=== PATIENT | female | born 1970 | race Caucasian/White ===

== ENCOUNTER → 2019-11-06 08:12 | Outpatient (BNVA) | payer OTHER, SELFPAY | PROVIDERS: Family Provider Nurse Practitioner Family; PCP Registered Nurse; Referring Provider Registered Nurse; Visit Provider Psychiatry & Neurology Neurology | DX: R20.0 Anesthesia of skin (principal); R20.2 Paresthesia of skin; R29.90 Unspecified symptoms and signs involving the nervous system; F17.210 Nicotine dependence, cigarettes, uncomplicated | CPT/HCPCS: 95885; 95910 ==

== ENCOUNTER → 2019-11-16 09:11 | Outpatient (BNVA) | payer OTHER, SELFPAY | PROVIDERS: Family Provider Nurse Practitioner Family; PCP Registered Nurse; Visit Provider Registered Nurse | DX: G47.09 Other insomnia (principal); N30.00 Acute cystitis without hematuria; F51.02 Adjustment insomnia | CPT/HCPCS: 81003 ==

== ENCOUNTER → 2019-12-23 10:26 | Outpatient (BNVA) | payer OTHER, SELFPAY | PROVIDERS: Family Provider Nurse Practitioner Family; PCP Registered Nurse; Visit Provider Registered Nurse | DX: R68.89 Other general symptoms and signs (principal); J06.9 Acute upper respiratory infection, unspecified | CPT/HCPCS: 87400 ==

== ENCOUNTER → 2020-01-15 13:11 | Outpatient (BNVA) | payer OTHER, SELFPAY | PROVIDERS: Family Provider Nurse Practitioner Family; PCP Registered Nurse; Visit Provider Registered Nurse | DX: R30.0 Dysuria (principal); J06.9 Acute upper respiratory infection, unspecified | CPT/HCPCS: 81000 ==

== ENCOUNTER 2020-03-02 06:47 | Day surgery (SDC) | payer OTHER, SELFPAY ==
[2020-03-01 13:24] VITALS: BMI 26.6
[2020-03-02] VITALS (8 sets, daily range): BP systolic 114–144; BP diastolic 40–63; PULSE 56–72; RESP 10–20; TEMP 36.1–36.4; O2SAT 97–100
--- NOTE | 2020-03-02 07:22 | ANES.PREANE2 ---
Pre-Anesthetic Assessment Pre-Anesthetic Assessment: Height/Weight: Height 1.65 m Weight 72.575 kg Temp Pulse Resp BP Pulse Ox 97.5 F L 59 L 18 114/40 99 03/02/20 07:03 03/02/20 07:03 03/02/20 07:03 03/02/20 07:03 03/02/20 07:03 Preop Diagnosis: Bilateral carpal tunnel Proposed Procedure: Operation Date: 03/02/20 08:10 Proposed Procedures p Carpal Tunnel Release 80115 G56.03(Bilateral) - Ger Holliday MD Last intake: Intake Last Liquid Date 03/01/20 Last Liquid Time 23:59 Last Solid Date 03/01/20 Last Solid Time 22:00 Social: Social History: Tobacco (quit 2 week ago) and No alcohol Exam: Pre-Anes Outpt Exam: alert, oriented x 3, clear to auscultation bilaterally and regular rate & rhythm Airway: Submandibular: WNL Cervical ROM: WNL MP: 2 Dentition: False (upper and lower) History/ROS: No significant history except as noted Pulmonary: Pulmonary: None reported CV/HEM: CV/HEM: Arrythmia (freq PVC) : : None reported Hepatic: Hepatic: None reported GI: GI: GERD (not well controlled) and PUD Metabolic: Metabolic: None reported Musc/skel: Musc/skel: None reported Neuropsych: Neuropsych: Neuropathy (bilat hands) Anesthetic Plan: ASA status: 3 Anesthesia: Anesthesia Evaluation and General Risk of > 500 ml blood loss (7ml/kg in children): No PFSH Anesthesia PFSH: Medical History Arrhythmia Stomach ulcer Surgical History (Updated 03/02/20 @ 07:23 by Reji Fraser MD) History of partial hysterectomy Hx of cholecystectomy Social History Smoking and tobacco status: current every day smoker Data Anesthesia Cardiac Studies: No Data to Display
--- NOTE | 2020-03-02 07:24 | PC.NURSE ---
Verbal order given by Dr. Fraser
[2020-03-02] MEDS: sodium chloride 0.9% 1,000 ML 30 ML IV (07:25)
--- NOTE | 2020-03-02 08:07 | W.PM.OPSUD ---
Surgery/Procedure H&P Update DATE OF PROCEDURE: March 02, 2020 DATE H&P PERFORMED: 02/18/20 H&P UPDATE INFORMATION: I have reviewed H&P completed within last 30 days PREOP DIAGNOSIS: Bilateral carpal tunnel PLANNED PROCEDURE: Operation Date: 03/02/20 08:10 Proposed Procedures p Carpal Tunnel Release [id number] G56.03(Bilateral) - Ger Holliday MD
[2020-03-02] MEDS: mineral oil light VIAL 10 mL (08:20)
--- NOTE | 2020-03-02 09:02 | SUR.OPER ---
Pt brought to OR with a ring on bot index fingers. Rings taken off with mineral oil and an umbilcal tape.
--- NOTE | 2020-03-02 09:34 | PM.OP ---
Operative Report Date of procedure: March 02, 2020 Pre-op Diagnosis: Bilateral carpal tunnel Post-op diagnosis: same Post-op Findings: Same Procedure Done: Bilateral carpal tunnel release Pathology: none sent Surgeon: Ger Holliday Anesthesia: General Estimated blood loss (mL): 10 Tourniquet time (min): 8 (6 left) Complications: None Condition: stable Disposition: PACU Procedure: Patient was taken to the operating room and general anesthesia provided by the anesthesia service. Initially both upper extremities prepped and draped with the arm exposed. A timeout was performed. A 3 cm long incision was made on the right hand in line with the fourth ray from the distal edge of the carpal tunnel extending proximally. The subcutaneous fat and palmar fascia was divided with a scalpel blade. Under loupe magnification the ulnar neurovascular bundle was identified distally. A hemostat could be passed under the transverse carpal ligament allowing the distal 25% to be divided. A slotted guide was then passed beneath the transverse carpal ligament and the middle 50% divided. Blunt scissors were then passed over the guide freeing the proximal ligament. The tourniquet was deflated. Hemostasis provided with electrocautery. Wound edges were infiltrated with 10 cc of a half percent Marcaine solution. Skin edges were reapproximated with 3-0 Prolene. Sterile dressings were applied. Attention was then focused on the left upper extremity. A 3 cm long incision was made in line with the left fourth ray from the distal edge of the carpal tunnel extending proximally. The subcutaneous fat and palmar fascia was divided with a scalpel blade. Under loupe magnification the ulnar neurovascular bundle was identified distally. A hemostat could be passed under the transverse carpal ligament allowing the distal 25% to be divided. A slotted guide was then passed beneath the transverse carpal ligament and the middle 50% divided. Blunt scissors were then passed over the guide freeing the proximal ligament. The tourniquet was deflated. Hemostasis provided with electrocautery. Wound edges were infiltrated with 10 cc of a half percent Marcaine solution. Skin edges were reapproximated with 3-0 Prolene. Sterile dressings were applied. The patient was taken to the recovery room in stable condition
== END 2020-03-02 10:25 | disposition home or self-care (01) ==
PROVIDERS: Visit Provider Orthopaedic Surgery
PROC: (CPT 64721; principal; 2020-03-02 08:10)
DX: G56.03 Carpal tunnel syndrome, bilateral upper limbs (principal); K21.9 Gastro-esophageal reflux disease without esophagitis; F17.210 Nicotine dependence, cigarettes, uncomplicated
CPT/HCPCS: 64721; 12345; 96365; J0690; J1100; J2001; J2405; J2704; J3010; J3490; J7030

== ENCOUNTER → 2020-03-25 08:43 | Outpatient (BNVA) | payer OTHER, SELFPAY | PROVIDERS: Visit Provider Obstetrics & Gynecology | DX: N89.8 Other specified noninflammatory disorders of vagina (principal) | CPT/HCPCS: 88304 ==

== ENCOUNTER 2022-04-30 12:26 | Outpatient (CLI) | payer BC, SELFPAY ==
--- NOTE | 2022-04-30 13:03 | MM_ITS ---
WS: [id number] BILATERAL 3D TOMOSYNTHESIS DIGITAL SCREENING MAMMOGRAPHY WITH CAD CLINICAL INFORMATION: SCREENING HISTORY: Screening mammogram. Chronic bilateral breast lumps. COMPARISON: July 23, 2014 TECHNIQUE: Bilateral CC and MLO views. FINDINGS: Scattered fibroglandular densities bilaterally. Vascular calcification. Tiny incidental punctate calc ifications. No suspicious focal mass, asymmetry, calcifications, or architectural distortion. No evid ence of malignancy. MM/[place] [id number] IMPRESSION: BI-RADS: 2-Benign FOLLOW UP: 1 Year Follow-up Recommend return to annual screening mammography.
== END 2022-04-30 12:27 | disposition home or self-care (01) ==
LOC: RAD 12:29
PROVIDERS: Visit Provider Registered Nurse
DX: Z12.31 Encounter for screening mammogram for malignant neoplasm of breast (principal)
CPT/HCPCS: 77063; 77067

== ENCOUNTER 2022-12-12 15:39 | Outpatient (RCR) | payer BC, SELFPAY | END 2022-12-14 23:59 | disposition home or self-care (01) | LOC: SPT 15:39 | PROVIDERS: PCP Registered Nurse; Visit Provider Registered Nurse | DX: M25.512 Pain in left shoulder (principal); G89.29 Other chronic pain | CPT/HCPCS: 97161 ==

== ENCOUNTER 2022-12-15 06:00 | Outpatient (RCR) | payer BC, SELFPAY | END 2023-01-13 23:59 | disposition home or self-care (01) | LOC: SPT 06:00 | PROVIDERS: PCP Registered Nurse; Visit Provider Registered Nurse | DX: M25.512 Pain in left shoulder (principal); G89.29 Other chronic pain | CPT/HCPCS: 97110 ==

== ENCOUNTER → 2023-08-30 15:59 | Outpatient (BNVA) | payer BC, SELFPAY | PROVIDERS: PCP Registered Nurse; Visit Provider Nurse Practitioner Women's Health | DX: N76.0 Acute vaginitis (principal); R30.0 Dysuria; N95.1 Menopausal and female climacteric states; Z01.419 Encounter for gynecological examination (general) (routine) without abnormal findings; N89.8 Other specified noninflammatory disorders of vagina | CPT/HCPCS: 87086 ==

== ENCOUNTER → 2024-11-25 15:54 | Outpatient (BNVA) | payer BC, SELFPAY | PROVIDERS: PCP Registered Nurse; Visit Provider Nurse Practitioner Women's Health | DX: R30.0 Dysuria (principal); N95.1 Menopausal and female climacteric states; Z13.21 Encounter for screening for nutritional disorder | CPT/HCPCS: 81000; 82306; 82670 ==